=== PATIENT | female | born 1960 | race Caucasian/White ===

== ENCOUNTER 2018-02-26 08:50 | Outpatient (CLI) | payer OTHER ==
[~2018-02-26 08:50] MED LIST: ASCO10004 PO; BENA1TAB PO; ERGO500017 PO; FERR325T17 PO; METF10002 PO; MOVE FREE ULTR1 EACH PO; POTA15TA9 PO; VIT1TABL34 PO; ZOLP-413 PO
== END 2018-02-26 23:59 | disposition home or self-care (01) ==
LOC: CFH 08:50
PROVIDERS: ATTEND Family Medicine
DX: Z12.31 Encounter for screening mammogram for malignant neoplasm of breast (principal)
CPT/HCPCS: 77063; 77067